=== PATIENT | female | born 1990 | race Two or more races ===

== ENCOUNTER 2021-03-17 03:01 | Emergency (ER) | payer MEDICAID ==
[~2021-03-17] VITALS: Ht 170.2 cm; Wt 90.7 kg
[2021-03-17 03:02] VITALS: BP 141/94
[2021-03-17] MEDS ORDERED: ACETAMINOPHEN/CODEINE#3 (300/30mg) TAB PO ONE (05:00)
[2021-03-17] MEDS ORDERED: ONDANSETRON ODT 4 MG TAB PO ONE (05:00)
== END 2021-03-17 05:25 | disposition home or self-care (01) ==
LOC: ER 03:03
DX: S16.1XXA Strain of muscle, fascia and tendon at neck level, initial encounter (principal); F17.200 Nicotine dependence, unspecified, uncomplicated; F12.10 Cannabis abuse, uncomplicated; X58.XXXA Exposure to other specified factors, initial encounter; Y93.89 Activity, other specified; Y92.89 Other specified places as the place of occurrence of the external cause; Y99.8 Other external cause status
CPT/HCPCS: 72125; 81025; 99284; Q0162